=== PATIENT | female | born 1960 | race Caucasian/White ===

== ENCOUNTER 2017-11-24 20:16 | Emergency (ER) | payer OTHER ==
[~2017-11-24] VITALS: Ht 154.9 cm; Wt 58.0 kg
[~2017-11-24 20:16] MED LIST: GLIM2TAB PO; IBUP-232 PO; METF850T PO
[2017-11-24 20:31] VITALS: BP 150/78; PULSE 70; RESP 16; TEMP 98.5; O2SAT 97
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
[2017-11-24] MEDS ORDERED: ACETAMINOPHEN/HYDROcodone 325 MG/5 MG TAB PO ONE (20:45)
[2017-11-24] MEDS ORDERED: CYCL10TA PO (20:58)
[2017-11-24] MEDS ORDERED: DICL50TA3 PO (20:58)
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
== END 2017-11-24 21:26 | disposition home or self-care (01) ==
LOC: NEPD 20:16
DX: S16.1XXA Strain of muscle, fascia and tendon at neck level, initial encounter (principal); S00.03XA Contusion of scalp, initial encounter; M54.9 Dorsalgia, unspecified; R51 Headache; E11.9 Type 2 diabetes mellitus without complications; V49.59XA Passenger injured in collision with other motor vehicles in traffic accident, initial encounter
CPT/HCPCS: 72040; 99283